=== PATIENT | female | born 2000 | race Caucasian/White ===

== ENCOUNTER 2018-03-22 16:49 | Emergency (ER) | payer OTHER ==
[~2018-03-22] VITALS: Ht 167.6 cm; Wt 70.3 kg
[2018-03-22 17:37] LABS: BILIRUBIN,URINE NEGATIVE (NEG); CLARITY,URINE CLOUDY; COLOR,URINE YELLOW; NITRITE,URINE NEGATIVE (NEG); PH,URINE 7.5; PROTEIN,URINE NEGATIVE (NEG-TRACE)
[2018-03-22 17:48] LABS: RBC,URINE 0 /HPF (0-2)
[2018-03-22 17:49] LABS: BACTERIA,URINE MANY /HPF (0-FEW); SQUAMOUS EPITHELIAL CELL,UR MANY /LPF; WBC,URINE 20-40 /HPF (0-4)
--- NOTE | 2018-03-22 17:55 | PHYS DOC ---
Adult General Chief Complaint Chief Complaint: [facility]BD[facility]AL [facility] HPI Patient is a 17 year old female with no significant medical history no 1 para 0 presenting today with complains of abdominal pain in . She states she did 2 test today which were positive, she states abdominal pain began this afternoon, patient states the pain is very minimal. She states her last menstrual cycle was March 06, 2018. Patient denies any vaginal bleeding. Denies any nausea vomiting. Review of Systems Review of Systems Constitutional: Denies fever or chills [] Eyes: Denies change in visual acuity, redness, or eye pain [] HENT: Denies nasal congestion or sore throat [] Respiratory: Denies cough or shortness of breath [] Cardiovascular: No additional information not addressed in HPI [] GI: Reports abdominal pain in , denies, nausea, vomiting, bloody stools or diarrhea [] : Denies dysuria or hematuria [] Musculoskeletal: Denies back pain or joint pain [] Integument: Denies rash or skin lesions [] Neurologic: Denies headache, focal weakness or sensory changes [] All other systems were reviewed and found to be within normal limits, except as documented in this note. Allergies Allergies Allergies Coded Allergies Type Severity Reaction Last Updated Verified No Known Drug Allergies 03/22/18 No Physical Exam Physical Exam Constitutional: Well developed, well nourished, no acute distress, non-toxic appearance. [] HENT: Normocephalic, atraumatic, bilateral external ears normal, oropharynx moist, no oral exudates, nose normal. [] Eyes: PERRLA, EOMI, conjunctiva normal, no discharge. [] Neck: Normal range of motion, no tenderness, supple, no stridor. [] Cardiovascular:Heart rate regular rhythm, no murmur [] Lungs & Thorax: Bilateral breath sounds clear to auscultation [] Abdomen: Bowel sounds normal, soft, no tenderness, no masses, no pulsatile masses. [] Pelvic exam External pelvic appears normal, cervix is closed, no CMT, no adnexal tenderness , no bleeding. Skin: Warm, dry, no erythema, no rash. [] Back: No tenderness, no CVA tenderness. [] Extremities: No tenderness, no cyanosis, no clubbing, ROM intact, no edema. [] Neurologic: Alert and oriented X 3, normal motor function, normal sensory function, no focal deficits noted. [] Psychologic: Affect normal, judgement normal, mood normal. [] Current Patient Data Vital Signs Vital Signs Date Time Temp Pulse Resp B/P (MAP) Pulse Ox O2 Delivery O2 Flow Rate FiO2 03/22/18 17:55 98.8 100 18 133/59 (83) 99 Room Air 98.8 Lab Values Laboratory Tests Test 03/22/18 17:29 03/22/18 17:33 03/22/18 18:25 Urine Collection Type Unknown Urine Color Yellow Urine Clarity Cloudy Urine pH 7.5 Urine Specific [place] 1.020 Urine Protein Negative mg/dL (NEG-TRACE) Urine Glucose (UA) Negative mg/dL (NEG) Urine Ketones (Stick) Negative mg/dL (NEG) Urine Blood Negative (NEG) Urine Nitrite Negative (NEG) Urine Bilirubin Negative (NEG) Urine Urobilinogen Dipstick 1.0 mg/dL (0.2 mg/dL) Urine Leukocyte Esterase Large (NEG) Urine RBC 0 /HPF (0-2) Urine WBC 20-40 /HPF (0-4) Urine Squamous Epithelial Cells Many /LPF Urine Bacteria Many /HPF (0-FEW) POC Urine HCG, Qualitative Hcg positive (Negative) White Blood Count 9.1 x10^3/uL (4.0-11.0) Red Blood Count 4.11 x10^6/uL (3.50-5.40) Hemoglobin 12.1 g/dL (12.0-15.5) Hematocrit 35.4 % (36.0-47.0) L Mean Corpuscular Volume 86 fL (79-100) Mean Corpuscular Hemoglobin 30 pg (25-35) Mean Corpuscular Hemoglobin Concent 34 g/dL (31-37) Red Cell Distribution Width 14.0 % (11.5-14.5) Platelet Count 270 x10^3/uL (140-400) Neutrophils (%) (Auto) 63 % (31-73) Lymphocytes (%) (Auto) 25 % (24-48) Monocytes (%) (Auto) 10 % (0-9) H Eosinophils (%) (Auto) 1 % (0-3) Basophils (%) (Auto) 1 % (0-3) Neutrophils # (Auto) 5.8 x10^3uL (1.8-7.7) Lymphocytes # (Auto) 2.3 x10^3/uL (1.0-4.8) Monocytes # (Auto) 0.9 x10^3/uL (0.0-1.1) Eosinophils # (Auto) 0.1 x10^3/uL (0.0-0.7) Basophils # (Auto) 0.1 x10^3/uL (0.0-0.2) Maternal Serum HCG Beta Subunit 981 mIU/mL (0-5) H Sodium Level 136 mmol/L (136-145) Potassium Level 4.3 mmol/L (3.5-5.1) Chloride Level 102 mmol/L (98-107) Carbon Dioxide Level 25 mmol/L (21-32) Anion Gap 9 (6-14) Blood Urea Nitrogen 15 mg/dL (7-20) Creatinine 0.6 mg/dL (0.6-1.0) Estimated GFR (Cockcroft-Gault) 128.8 BUN/Creatinine Ratio 25 (6-20) H Glucose Level 97 mg/dL (70-99) Calcium Level 9.4 mg/dL (8.5-10.1) Total Bilirubin 0.2 mg/dL (0.2-1.0) Aspartate Amino Transferase (AST) 24 U/L (15-37) Alanine Aminotransferase (ALT) 45 U/L (14-59) Alkaline Phosphatase 55 U/L (46-116) Total Protein 7.6 g/dL (6.4-8.2) Albumin 3.7 g/dL (3.4-5.0) Albumin/Globulin Ratio 0.9 (1.0-1.7) L Laboratory Tests 03/22/18 18:25 Laboratory Tests 03/22/18 18:25 Microbiology 03/22/18 Wet Prep - Final, Complete EKG EKG [] Radiology/Procedures Radiology/Procedures [] Course & Med Decision Making Course & Med Decision Making Pertinent Labs and Imaging studies reviewed. (See chart for details) This is a 17-year-old female patient presenting to the ED with complaints of abdominal pain in . Patient just found out today she is . She is a 1 para 0, last menstrual cycle was March 06, 2018. Positive urine hcg. 1750 Care transferred to Marcial Mckay NP. The patient is found to be positive with a urinary tract infection as well as bacterial vaginosis. She is being discharged home with prescriptions to treat his infections. She has been given a referral to an cinder pit worker. She is in agreement with this plan. Vinny Disclaimer Vinny Disclaimer This electronic medical record was generated, in whole or in part, using a voice recognition dictation system. Departure Departure Impression: Primary Impression: Abdominal pain in Additional Impressions: Urinary tract infection affecting Bacterial vaginosis Disposition: HOME, SELF-CARE Condition: STABLE Referrals: FOREST ALTAMIRANO MD follow up in the next 1-2 weeks Patient Instructions: Bacterial Vaginosis, - Urinary Tract Infection Additional Instructions: Take the medication as prescribed. Follow-up with your primary care provider in one week for urine recheck. If worsening follow-up with OB sooner or return to the emergency department. Scripts Nitrofurantoin Monohyd/M-Cryst (MACROBID 100 MG CAPSULE) 100 Mg Capsule 1 CAP PO BID for UTI, #14 CAP Prov: MARCIAL MCKAY APRN 03/22/18 Metronidazole (FLAGYL) 500 Mg Tablet 1 TAB PO BID for BV, #14 TAB Prov: MARCIAL MCKAY APRN 03/22/18 Problem Qualifiers Primary Impression: Abdominal pain in Trimester: first trimester Qualified Codes: O26.891 - Other specified related conditions, first trimester; R10.9 - Unspecified abdominal pain CONY CAMPOS APRN Mar 22, 2018 17:55 MARCIAL MCKAY APRN Mar 22, 2018 20:02
[2018-03-22 18:35] LABS: BASO # 0.1 x10^3/uL (0.0-0.2); BASO % 1 % (0-3); EOS # 0.1 x10^3/uL (0.0-0.7); EOS % 1 % (0-3); HEMATOCRIT 35.4 % (36.0-47.0); HEMOGLOBIN 12.1 g/dL (12.0-15.5); LYMPH # 2.3 x10^3/uL (1.0-4.8); LYMPH % 25 % (24-48); MEAN CORPUSCULAR HEMOGLOBIN 30 pg (25-35); MEAN CORPUSCULAR HGB CONC 34 g/dL (31-37); MEAN CORPUSCULAR VOLUME 86 fL (79-100); MONO # 0.9 x10^3/uL (0.0-1.1); MONO % 10 % (0-9); NEUT # 5.8 x10^3uL (1.8-7.7); NEUT % 63 % (31-73); PLATELET COUNT 270 x10^3/uL (140-400); RED BLOOD COUNT 4.11 x10^6/uL (3.50-5.40); WHITE BLOOD COUNT 9.1 x10^3/uL (4.0-11.0)
[2018-03-22 18:44] LABS: CALCIUM 9.4 mg/dL (8.5-10.1); CREATININE 0.6 mg/dL (0.6-1.0); GFR 128.8; POTASSIUM 4.3 mmol/L (3.5-5.1)
[2018-03-22 18:50] LABS: ALBUMIN 3.7 g/dL (3.4-5.0); ALBUMIN/GLOBULIN RATIO 0.9 (1.0-1.7); TOTAL BILIRUBIN 0.2 mg/dL (0.2-1.0); TOTAL PROTEIN 7.6 g/dL (6.4-8.2)
[2018-03-22 19:51] VITALS: BP 108/66
[2018-03-22] MEDS ORDERED: METR500T PO (20:01)
[2018-03-22] MEDS ORDERED: NITR100C62 PO (20:01)
[2018-03-25 14:23] LABS: GC PROBE Negative (Negative)
== END 2018-03-22 19:57 | disposition home or self-care (01) ==
LOC: ER 16:49
DX: O23.41 Unspecified infection of urinary tract in pregnancy, first trimester (principal); O23.591 Infection of other part of genital tract in pregnancy, first trimester; R10.9 Unspecified abdominal pain; B96.89 Other specified bacterial agents as the cause of diseases classified elsewhere; Z3A.01 Less than 8 weeks gestation of pregnancy
CPT/HCPCS: 80053; 81001; 81025; 84702; 85025; 99283; Q0111; 36415; 87086; 87491; 87591

== ENCOUNTER → 2018-11-28 | Outpatient (CLI) | payer MEDICAID ==
[2018-04-11 19:00] VITALS: BP 121/80
[~2018-11-28] MED LIST: CEPH500C PO; METR500T PO; NITR100C62 PO; ONDA4TAB7 PO
--- NOTE | 2018-11-29 12:14 | KCIC ---
OB ultrasound greater than 14 weeks 11/28/2018 Clinical History: survey. Technique: A real-time ultrasound examination of the gravid uterus was performed. Multiple images were obtained. Findings: There is a single living IUP. The fetus is in a cephalic position. cardiac and somatic activity is seen. The heart rate is 150 beats per minutes. The maternal cervix is closed. It measures 4.28 cm in length. The placenta is anterior. No abnormality is seen. The amniotic fluid volume is within normal limits. The CON measures 12.9 cm. Neither maternal ovary is visualized. The following measurements were obtained: BPD 4.92cm 20 weeks 6 days HC 18.48 cm 20weeks 6 days AC 14.73 cm 20weeks 0 days FL 3.20 cm 20 weeks 0 days The estimated gestational age by ultrasound is 20 weeks 3 days plus or minus a standard deviation of 10 days. The estimated date of delivery by ultrasound is 04/14/2019. No abnormality is seen. Specifically the stomach, bladder, kidneys, 3 vessel cord and cord insertion, four-chamber heart, cisterna magna, cerebellum, nose/mouth, spine and extremities are well-visualized and within normal limits. Impression: Single living IUP with an estimated gestational age by ultrasound of 20 weeks 3 days +/- a standard deviation of 10 days. The estimated date of delivery by ultrasound is 04/14/2019. Electronically signed by: Donell Hutchinson MD (11/29/2018 12:10 PM) [facility]
== END | disposition home or self-care (01) ==
LOC: KCIC US 08:41
PROVIDERS: ATTEND Obstetrics & Gynecology
DX: O26.842 Uterine size-date discrepancy, second trimester (principal); Z3A.20 20 weeks gestation of pregnancy
CPT/HCPCS: 76805

== ENCOUNTER 2019-01-04 12:43 | Emergency (ER) | payer MEDICAID ==
[~2019-01-04] VITALS: Ht 170.2 cm; Wt 70.3 kg
[2019-01-04 13:00] VITALS: BP 143/80
--- NOTE | 2019-01-04 13:08 | PHYS DOC ---
Past Medical History Past Medical History: No Pertinent History (TESS HERNANDEZ APRN) Past Surgical History: No Surgical History (TESS HERNANDEZ APRN) Alcohol Use: None Drug Use: None (TESS HERNANDEZ APRN) Adult General Chief Complaint Chief Complaint: WRIST PAIN HPI HPI Patient is a 18 year old female who presents with Left lateral wrist pain that started last night. No bruising, swelling, redness, abrasion. Denies injury. Rates pain a 7/10. When patient is asked to explain the quality of pain she is unable too and states she doesn't know. (TESS HERNANDEZ APRN) Review of Systems Review of Systems Musculoskeletal: Denies back pain. Left lateral wrist pain joint pain [] All other systems were reviewed and found to be within normal limits, except as documented in this note. (TESS HERNANDEZ APRN) Allergies Allergies Allergies Coded Allergies Type Severity Reaction Last Updated Verified No Known Drug Allergies 03/22/18 No (MATTHIAS HERRERA MD) Physical Exam Physical Exam Constitutional: Well developed, well nourished, no acute distress, non-toxic appearance. [] HENT: Normocephalic, atraumatic, bilateral external ears normal, oropharynx moist, no oral exudates, nose normal. [] Skin: Warm, dry, no erythema, no rash. [] Back: No tenderness, no CVA tenderness. [] Extremities: No tenderness, no cyanosis, no clubbing, ROM intact, no edema. [] Neurologic: Alert and oriented X 3, normal motor function, normal sensory function, no focal deficits noted. [] Psychologic: Affect normal, judgement normal, mood normal. [] (TESS HERNANDEZ APRN) Current Patient Data Vital Signs Vital Signs Date Time Temp Pulse Resp B/P (MAP) Pulse Ox O2 Delivery O2 Flow Rate FiO2 01/04/19 13:00 97.4 102 16 143/80 (101) 95 Room Air 97.4 (MATTHIAS HERRERA MD) EKG EKG [] (TESS HERNANDEZ APRN) Radiology/Procedures Radiology/Procedures [] (TESS HERNANDEZ APRN) Course & Med Decision Making Course & Med Decision Making No tenderness to the left lateral wrist or forearm. Full range of motion to the Left wrist and elbow. Can wiggles all fingers. No swelling. Radial pulse strong and present. Cap refill < 3 seconds. Alert and oriented. Speak in full clear sentences. I offered a xray although I states to the patient and family that there is likely no broken bones. Family states no she doesn't need one and would like a wendy bandage. I also offered Ibuprofen and the family states that they will stop and get Ibuprofen for the patient. [] (TESS HERNANDEZ APRN) Dragon Disclaimer Dragon Disclaimer This electronic medical record was generated, in whole or in part, using a voice recognition dictation system. (TESS HERNANDEZ APRN) Departure Departure Impression: Primary Impression: Encounter for medical screening examination Disposition: 01 HOME, SELF-CARE Condition: STABLE Referrals: RJ BAEZA MD (PCP) Patient Instructions: Medical Screening Exam Additional Instructions: Follow up with primary care provider. Attending Signature I have participated in the care of this patient and I have reviewed and agree with all pertinent clinical information above including history, exam, and recommendations. (MATTHIAS HERRERA MD) TESS HERNANDEZ APRN Jan 04, 2019 13:08 MATTHIAS HERRERA MD Jan 09, 2019 18:13
== END 2019-01-04 13:26 | disposition home or self-care (01) ==
LOC: ER 12:43
DX: M25.532 Pain in left wrist (principal)
CPT/HCPCS: 99282

== ENCOUNTER → 2019-01-20 | Outpatient (CLI) | payer MEDICAID ==
[2019-01-04 13:00] VITALS: BP 143/80
== END | disposition home or self-care (01) ==
LOC: LAB 08:59
PROVIDERS: ATTEND Obstetrics & Gynecology
DX: O09.90 Supervision of high risk pregnancy, unspecified, unspecified trimester (principal)
CPT/HCPCS: 36415; 82947; 82950

== ENCOUNTER 2019-02-08 14:09 | Emergency (ER) | payer MEDICAID ==
[~2019-02-08] VITALS: Ht 170.2 cm; Wt 91.6 kg
[2019-02-08 14:18] VITALS: BP 136/80
[2019-02-08] MEDS ORDERED: IPRATRPIUM/ALBUTEROL 0.5/2.5MG 3 ML NEBU. NEB ONE (14:30)
--- NOTE | 2019-02-08 14:36 | PHYS DOC ---
Past Medical History Past Medical History: No Pertinent History Past Surgical History: No Surgical History Alcohol Use: None Drug Use: None Adult General Chief Complaint Chief Complaint: SHORTNESS OF BREATH HPI HPI Patient is a 18 year old estimated 30 week gestation female who presents with shortness of breath episode starting 1 hour prior to ED arrival. Symptoms lasted 40 minutes then resolved. Patient recently diagnosed and treated for bronchitis at local clinic. She is taking Zithromax. Reports continued nonproductive cough. No history of asthma. Denies chest pain palpitations, fever chills or sweats. Denies increased leg pain or swelling. Denies abdominal pain. Reports quickening. No other acute symptoms or complaints. [] Review of Systems Review of Systems ROS as per HPI. All other systems were reviewed and found to be within normal limits, except as documented in this note. Current Medications Current Medications Current Medications Medications (Trade) Dose Ordered Sig/Bo Start Time Stop Time Status Last Admin Dose Admin Albuterol/ Ipratropium (Duoneb) 3 ml 1X ONCE 02/08/19 14:30 02/08/19 14:38 DC 02/08/19 14:46 3 ML Allergies Allergies Allergies Coded Allergies Type Severity Reaction Last Updated Verified No Known Drug Allergies 03/22/18 No Physical Exam Physical Exam Constitutional: Well developed, well nourished, no acute distress, non-toxic appearance. [] HENT: Normocephalic, atraumatic, bilateral external ears normal, oropharynx moist, no oral exudates, nose normal. [] Eyes: PERRLA, EOMI, conjunctiva normal, no discharge. [] Neck: Normal range of motion, no tenderness, supple, no stridor. [] Cardiovascular:Heart rate regular rhythm, no murmur. [] Lungs & Thorax: Bilateral breath sounds clear to auscultation, [] Abdomen: Bowel sounds normal, soft, no tenderness. Abdomen abdomen above the umbilicus, [] Skin: Warm, dry, no erythema, no rash. [] Back: No tenderness. [] Extremities: No tenderness, no cyanosis, no edema. [] Neurologic: Alert and oriented X 3, normal motor function, normal sensory funct ion, no focal deficits noted. [] Psychologic: Affect normal, judgement normal, mood normal. [] Current Patient Data Vital Signs Vital Signs Date Time Temp Pulse Resp B/P (MAP) Pulse Ox O2 Delivery O2 Flow Rate FiO2 02/08/19 16:00 92 25 95 Room Air 02/08/19 14:18 97.4 136/80 (98) 97.4 EKG EKG [] Radiology/Procedures Radiology/Procedures [] Course & Med Decision Making Course & Med Decision Making Pertinent Labs and Imaging studies reviewed. (See chart for details) [Bronchitis with bronchospasm. Breathing treatment given with good air movement and no wheezing. Symptoms much improved. Outpatient treatment with your [employer] follow-up. Return precautions reviewed. Patient verbalizes understanding and agreement with discharge instructions prior to departure. Dragon Disclaimer Dragon Disclaimer This electronic medical record was generated, in whole or in part, using a voice recognition dictation system. Departure Departure Impression: Primary Impression: Acute bronchiolitis with bronchospasm Additional Impression: Third trimester Disposition: 01 HOME, SELF-CARE Condition: IMPROVED Referrals: RJ BAEZA MD (PCP) Scripts Albuterol Sulfate (VENTOLIN HFA INHALER) 18 Gm Hfa.aer.ad 2 PUFF INH QID for shortness of breath, #1 INHALER 0 Refills Prov: JOANIE DAVENPORT DO 02/08/19 Prednisone (PREDNISONE) 50 Mg Tablet 1 TAB PO DAILY, #5 TAB Prov: JOANIE DAVENPORT DO 02/08/19 Problem Qualifiers JOANIE DAVENPORT DO Feb 08, 2019 14:36
[2019-02-08] MEDS ORDERED: VENTOLIN HFA18 GM INH (16:05)
[2019-02-08] MEDS ORDERED: PRED50TA PO (16:05)
== END 2019-02-08 16:30 | disposition home or self-care (01) ==
LOC: ER 14:09
DX: O99.513 Diseases of the respiratory system complicating pregnancy, third trimester (principal); J21.9 Acute bronchiolitis, unspecified; Z3A.30 30 weeks gestation of pregnancy
CPT/HCPCS: 94640; 99284; J7620; 99283

== ENCOUNTER 2019-04-14 18:11 | Inpatient (IN) | payer SELFPAY ==
[~2019-04-14] VITALS: Ht 170.2 cm; Wt 96.2 kg
[~2019-04-14 18:11] MED LIST changes: +PRED50TA PO; +VENTOLIN HFA18 GM INH
[2019-04-14] MEDS ORDERED: MAG HYDROX/ALUMINUM HYD/SIMETH 30 ML ORAL.SUSP PO PRN (18:30)
[2019-04-14] MEDS ORDERED: 0.9 % SODIUM CHLORIDE 10 ML DISP.SYRIN. IV PRN (18:30)
[2019-04-14] MEDS ORDERED: ACETAMINOPHEN 325 MG TABLET. PO PRN (18:30)
[2019-04-14] MEDS ORDERED: ONDANSETRON PF 4 MG/2 ML VIAL. IV PRN (18:30)
[2019-04-14] MEDS ORDERED: DOCUSATE SODIUM 283 MG/5 ML ENEMA. PR PRN (18:30)
[2019-04-14] MEDS ORDERED: TERBUTALINE 1 MG/ML VIAL. SQ PRN (18:30)
[2019-04-14] MEDS ORDERED: DINOPROSTONE 10 MG SUPP.VAG VG ONE (18:30)
[2019-04-14] MEDS ORDERED: LIDOCAINE 1% PF 30 ML VIAL. INJ PRN (18:30)
[2019-04-14] MEDS ORDERED: OXYTOCIN 30 UNIT/500 ML PREMIX 500 ML IV PRN (18:30)
[2019-04-14] MEDS ORDERED: IBUPROFEN 400 MG TABLET. PO PRN (18:30)
[2019-04-14] MEDS ORDERED: CITRIC ACID/SODIUM CITRATE 30 ML SOLUTION. PO PRN (18:30)
[2019-04-14] MEDS ORDERED: ZOLPIDEM 5 MG TABLET. PO PRN (18:30)
[2019-04-14] MEDS ORDERED: fentaNYL PF VIAL 100 MCG/2 ML VIAL IV PRN ×2 (18:30)
[2019-04-14] MEDS: IV RINGERS,LACTATED 1000ML 1,000 ML IV SCH (19:26)
[2019-04-14 19:29] VITALS: BP 127/82
[2019-04-14 19:38] LABS: BASO % 0 % (0-3); EOS # 0.1 x10^3/uL (0.0-0.7); EOS % 1 % (0-3); HEMOGLOBIN 11.8 g/dL (12.0-15.5); LYMPH # 1.6 x10^3/uL (1.0-4.8); LYMPH % 17 % (24-48); MEAN CORPUSCULAR HEMOGLOBIN 29 pg (25-35); MEAN CORPUSCULAR HGB CONC 34 g/dL (31-37); MEAN CORPUSCULAR VOLUME 86 fL (79-100); MONO % 10 % (0-9); NEUT # 6.6 x10^3/uL (1.8-7.7); NEUT % 72 % (31-73); PLATELET COUNT 221 x10^3/uL (140-400); RED BLOOD COUNT 4.07 x10^6/uL (3.50-5.40); RED CELL DISTRIBUTION WIDTH 16.4 % (11.5-14.5); WHITE BLOOD COUNT 9.2 x10^3/uL (4.0-11.0)
[2019-04-14 20:22] LABS: BILIRUBIN,URINE NEGATIVE (NEG); CLARITY,URINE CLEAR; COLOR,URINE YELLOW; NITRITE,URINE NEGATIVE (NEG); PH,URINE 6.5; PROTEIN,URINE NEGATIVE (NEG-TRACE)
[2019-04-14 20:26] LABS: SQUAMOUS EPITHELIAL CELL,UR MOD /LPF
[2019-04-14 20:27] LABS: BACTERIA,URINE MODERATE /HPF (0-FEW); RBC,URINE RARE /HPF (0-2)
[2019-04-15] MEDS: OXYTOCIN 30 UNIT/500 ML PREMIX 500 ML IV PRN (06:08)
[2019-04-15] MEDS: IV RINGERS,LACTATED 1000ML 1,000 ML IV SCH (08:21)
--- NOTE | 2019-04-15 08:31 | PDOC1 ---
OB - History Hx of Present Care: Good Care Ultrasounds: Normal mid trimester US Obstetrical Complications: None Medical Complications: None Past Family/Social History * Past Medical, Surgical, Family and Obstetric Histories reviewed from chart. Rubella: Immune RPR/VDRL: Negative GBS Status: Negative HBsAG: Negative OB - Chief Complaint & HPI Date of Admission: Date of Admission: Apr 14, 2019 at 18:11 Chief Complaint/History : 2 Para: 0 EGA: 40 Reason for admission: induction of labor Indication for induction: post dates, maternal discomfort Admission Nurse Assessment Rev: Yes OB - Admission Exam Physical Exam Vitals: VS - Last 72 Hours, by Label Date Time Temp Pulse Resp B/P (MAP) Pulse Ox O2 Delivery O2 Flow Rate FiO2 04/14/19 19:29 98.2 99 18 127/82 (97) 99 Room Air 98.2 HEENT: Normal Heart: Regular Rate Lungs: Clear Abdomen: Gravid, Non tender, Soft Extremities: Edema Reflexes: Normal Cervical Dilatation: None Effacement: 25% Station: -3 Membranes: Intact Heart Rate: Normal Accelerations: Accelerations Present Decelerations: No decelerations Contractions on Admission: None Text A: 40 wks IUP IOL secondary post term P: Admit labor induction cervidil, then pitocin. BRANDON HOFFMAN Jr, MD Apr 15, 2019 08:31
[2019-04-15] MEDS ORDERED: DINOPROSTONE 10 MG SUPP.VAG VG ONE (18:00)
[2019-04-15] MEDS ORDERED: diphenhydrAMINE HCL 25 MG CAPSULE PO PRN (21:15)
[2019-04-16] MEDS: IV RINGERS,LACTATED 1000ML 1,000 ML IV SCH ×5 (02:17→19:56)
[2019-04-16] MEDS: OXYTOCIN 30 UNIT/500 ML PREMIX 500 ML IV PRN (08:38)
--- NOTE | 2019-04-16 09:14 | PDOC ---
OB Progress Note Date of Service 04/16/19 Time of Evaluation 0912 Notes Pt. feeling well. She received cervidil overnight and now on pitocin augmentation. No cervical change. Lab Laboratory Tests Test 04/14/19 19:15 White Blood Count 9.2 x10^3/uL (4.0-11.0) Red Blood Count 4.07 x10^6/uL (3.50-5.40) Hemoglobin 11.8 g/dL (12.0-15.5) Hematocrit 35.0 % (36.0-47.0) Mean Corpuscular Volume 86 fL (79-100) Mean Corpuscular Hemoglobin 29 pg (25-35) Mean Corpuscular Hemoglobin Concent 34 g/dL (31-37) Red Cell Distribution Width 16.4 % (11.5-14.5) Platelet Count 221 x10^3/uL (140-400) Neutrophils (%) (Auto) 72 % (31-73) Lymphocytes (%) (Auto) 17 % (24-48) Monocytes (%) (Auto) 10 % (0-9) Eosinophils (%) (Auto) 1 % (0-3) Basophils (%) (Auto) 0 % (0-3) Neutrophils # (Auto) 6.6 x10^3/uL (1.8-7.7) Lymphocytes # (Auto) 1.6 x10^3/uL (1.0-4.8) Monocytes # (Auto) 1.0 x10^3/uL (0.0-1.1) Eosinophils # (Auto) 0.1 x10^3/uL (0.0-0.7) Basophils # (Auto) 0.0 x10^3/uL (0.0-0.2) Urine Collection Type Unknown Urine Color Yellow Urine Clarity Clear Urine pH 6.5 Urine Specific [place] 1.020 Urine Protein Negative mg/dL (NEG-TRACE) Urine Glucose (UA) Negative mg/dL (NEG) Urine Ketones (Stick) Negative mg/dL (NEG) Urine Blood Negative (NEG) Urine Nitrite Negative (NEG) Urine Bilirubin Negative (NEG) Urine Urobilinogen Dipstick 1.0 mg/dL (0.2 mg/dL) Urine Leukocyte Esterase Moderate (NEG) Urine RBC Rare /HPF (0-2) Urine WBC 11-20 /HPF (0-4) Urine Squamous Epithelial Cells Mod /LPF Urine Bacteria Moderate /HPF (0-FEW) Urine Mucus Mod /LPF Treponema pallidum Antibody Nonreactive (Nonreactive) Medications Current Medications Sodium Chloride (Normal Saline Flush) 3 ml QSHIFT PRN IV AFTER MEDS AND BLOOD DRAWS; Start 04/14/19 at 18:30 Ringer's Solution 1,000 ml @ 125 mls/hr Q8H IV Last administered on 04/16/19at 08:40; Start 04/14/19 at 18:17 Fentanyl Citrate (Fentanyl 2ml Vial) 50 mcg PRN Q30MIN PRN IV Mild to moderate pain; Start 04/14/19 at 18:30 Fentanyl Citrate (Fentanyl 2ml Vial) 100 mcg PRN Q30MIN PRN IV Severe pain; Start 04/14/19 at 18:30 Acetaminophen (Tylenol) 650 mg PRN Q6HRS PRN PO MILD PAIN / TEMP; Start 04/14/19 at 18:30 Ondansetron HCl (Zofran) 4 mg PRN Q4HRS PRN IV NAUSEA/VOMITING; Start 04/14/19 at 18:30 Al Hydroxide/Mg Hydroxide (Mylanta Plus Xs) 30 ml PRN Q4HRS PRN PO HEARTBURN / GAS; Start 04/14/19 at 18:30 Citric Acid/ Sodium Citrate (Bicitra) 30 ml 1X PRN PRN PO DYSPEPSIA; Start 04/14/19 at 18:30; Stop 04/15/19 at 18:29; Status DC Zolpidem Tartrate (Ambien) 5 mg PRN QHS PRN PO INSOMNIA Last administered on 04/15/19at 00:13; Start 04/14/19 at 18:30; Stop 04/15/19 at 13:14; Status DC Terbutaline Sulfate (Brethine) 0.25 mg 1X PRN PRN SQ SEE COMMENTS; Start at 18:30; Stop 04/15/19 at 18:29; Status DC Lidocaine HCl (Xylocaine 1% Pf 30ml Vial) 30 ml 1X PRN PRN INJ SEE COMMENTS; Start 04/14/19 at 18:30; Stop 04/16/19 at 18:29 Oxytocin/Sodium Chloride 500 ml @ 0 mls/hr CONT PRN IV SEE I/O RECORD Last administered on 04/16/19at 08:38; Start 04/14/19 at 18:30 Oxytocin/Sodium Chloride 500 ml @ 0 mls/hr CONT PRN PRN IV Post delivery bleeding; Start 04/14/19 at 18:30 Ibuprofen (Motrin) 800 mg PRN Q6HRS PRN PO INFLAMMATION; Start 04/14/19 at 18:30 Docusate Sodium (Enemeez) 283 mg PRN DAILY PRN ID CONSTIPATION; Start 04/14/19 at 18:30 Dinoprostone (Cervidil) 10 mg 1X ONCE VG Last administered on 04/14/19at 19:26; Start 04/14/19 at 18:30; Stop 04/14/19 at 18:31; Status DC Dinoprostone (Cervidil) 10 mg 1X ONCE VG Last administered on 04/15/19at 17:46; Start 04/15/19 at 18:00; Stop 04/15/19 at 18:01; Status DC Diphenhydramine HCl (Benadryl) 25 mg PRN QHS PRN PO INSOMNIA Last administered on 04/15/19at 21:14; Start 04/15/19 at 21:15 Active Scripts Active Ventolin Hfa Inhaler (Albuterol Sulfate) 18 Gm Hfa.aer.ad 2 Puff INH QID Prednisone 50 Mg Tablet 1 Tab PO DAILY Cephalexin 500 Mg Capsule 1 Cap PO BID Zofran (Ondansetron Hcl) 4 Mg Tablet 1 Tab PO Q6HRS Macrobid 100 Mg Capsule (Nitrofurantoin Monohyd/M-Cryst) 100 Mg Capsule 1 Cap PO BID Flagyl (Metronidazole) 500 Mg Tablet 1 Tab PO BID Exam Abd: soft, non tender Pelvic: cervix closed Assessment 40 wks IUP FTD Plan of Care: See new orders (Plan for c/s since no cervical change.) BRANDON HOFFMAN Jr, MD Apr 16, 2019 09:14
[2019-04-16] MEDS ORDERED: FAMOTIDINE 20 MG/2 ML VIAL ONE (10:52)
[2019-04-16] MEDS ORDERED: OXYTOCIN 10 UNIT/ML VIAL. ONE ×3 (10:52→14:25)
[2019-04-16] MEDS ORDERED: ONDANSETRON PF 4 MG/2 ML VIAL. ONE (10:52)
[2019-04-16] MEDS ORDERED: fentaNYL PF VIAL 100 MCG/2 ML VIAL ONE (10:53)
[2019-04-16] MEDS ORDERED: MORPHINE PF 10 MG/10 ML AMPUL. ONE (10:53)
[2019-04-16] MEDS ORDERED: CITRIC ACID/SODIUM CITRATE 30 ML SOLUTION. PO ONE (13:15)
[2019-04-16] MEDS ORDERED: ceFAZolin SODIUM IV Push 1 GM VIAL. IVP ONE (13:43)
--- NOTE | 2019-04-16 14:34 | PDOC4 ---
OB Operative Note Date: Apr 16, 2019 PRE OP DIAGNOSIS: Other (FTD) POST OP DIAGNOSIS: Other (Same) OPERATION PERFORMED: L [facility] Surgeon Dr. Cali Anesthesia: Regional (Spinal) Blood Loss 1, 000 ml Specimen placenta and OB Findings: Position (Vertex), Sex (Female), (8/9), Weight (7 Lb 11 oz), Nuchal Cord (x 2) Complications none Additional Remarks pt. BRANDON Virk Jr, MD Apr 16, 2019 14:34
[2019-04-16] MEDS ORDERED: MAG HYDROX/ALUMINUM HYD/SIMETH 30 ML ORAL.SUSP PO PRN (14:45)
[2019-04-16] MEDS ORDERED: ONDANSETRON PF 4 MG/2 ML VIAL. IV PRN (14:45)
[2019-04-16] MEDS ORDERED: OXYTOCIN 30 UNIT/500 ML PREMIX 500 ML IV PRN (14:45)
[2019-04-16] MEDS ORDERED: ZOLPIDEM 5 MG TABLET. PO PRN (14:45)
[2019-04-16] MEDS ORDERED: diphenhydrAMINE ORAL ELIXIR 12.5 MG/5 ML ML PO PRN (14:45)
[2019-04-16] MEDS ORDERED: 0.9 % SODIUM CHLORIDE 10 ML DISP.SYRIN. IV PRN (14:45)
[2019-04-16] MEDS ORDERED: SIMETHICONE 80 MG TAB.CHEW PO PRN (14:45)
[2019-04-16] MEDS ORDERED: KETOROLAC 30 MG/ML VIAL. IV PRN (14:45)
[2019-04-16 18:00] VITALS: BP 105/65
--- NOTE | 2019-04-16 18:52 | OP ---
DATE OF SURGERY: PREOPERATIVE DIAGNOSES: 1. A 40 weeks' intrauterine . 2. Failure to dilate. POSTOPERATIVE DIAGNOSES: 1. A 40 weeks' intrauterine . 2. Failure to dilate. PROCEDURE: Primary low transverse section. SURGEON: Brandon Cali MD ANESTHESIA: Spinal. ESTIMATED BLOOD LOSS: 1000 mL. COMPLICATIONS: None. FINDINGS: Viable female , Apgars 8 and 9, weight 7 pounds 11 ounces, nuchal cord x 2, 3-vessel cord, placenta delivered manually. SUMMARY: A 18-year-old 1 at 40 weeks' gestation who presented for induction of labor. The patient failed to dilate, therefore, required section. She was counseled on risks, benefits, and expectations and voiced of clear understanding to proceed. DESCRIPTION OF PROCEDURE: The patient was taken to surgery suite and placed in dorsal supine position. She was prepped with ChloraPrep and draped in sterile fashion. After adequate anesthesia, Pfannenstiel skin incision was made with scalpel down to and through the fascia. Fascia was extended laterally using curved Trejo scissors. The superior edge of the fascia was grasped with two Savanna clamps and dissected free of the abdominal rectus muscles using blunt dissection along with Bovie cautery. The same process took place inferiorly. The abdominal rectus muscle dissected bluntly at the midline. Peritoneum was grasped with 2 hemostats, entered sharply with Metzenbaum scissors. This incision was extended superiorly as well as inferiorly. The William ring retractor was placed. A low transverse hysterotomy incision was made with scalpel down to the amniotic sac. Hysterotomy incision was extended laterally and superiorly digitally. Amniotomy was performed with Allis clamp which elicited moderate amount of clear fluid. With fundal pressure, the head was delivered in a smooth atraumatic manner. Nuchal cord x 2 was visualized and reduced. With additional fundal pressure, the anterior shoulder was delivered followed by posterior shoulder and rest of female was delivered. Infant suctioned with a bulb syringe orally and nasally, umbilical cord was clamped twice and cut and viable female infant was handed to waiting nursing staff. Umbilical cord blood was then obtained. Three-vessel cord placenta was delivered manually. The uterus was then exteriorized and cleared of clot and debris with moist lap. Hysterotomy incision was reapproximated using #1 Vicryl suture in running locked fashion. Imbricated layer of #1 Vicryl suture in a running fashion was utilized for better hemostasis. Three [id number] sutures were placed in the left apex of the hysterotomy incision for better hemostasis. Uterus palpated, firm. Fallopian tubes and ovaries appeared normal bilaterally. Posterior cul-de-sac was cleared of clot and debris with a moist lap. The uterus was then returned to the abdomen. Pericolic gutters were cleared of clot and debris with a moist lap. Hysterotomy incision was reviewed and was hemostatic. The William ring retractor was removed. Peritoneum was reapproximated using #1 Vicryl suture in running fashion. Abdominal rectus muscles were reapproximated using #1 Vicryl suture in running fashion. Fascia was reapproximated using Stratafix in a running fashion. Skin was reapproximated with 4-0 Vicryl suture in subcutaneous manner. The patient tolerated the procedure well, was taken to recovery room in stable condition. Sponge and needle count correct x 3. BRANDON CALI MD DR: JAMES/ramila JOB#: [id number] / [id number]
[2019-04-16 19:49] VITALS: BP 109/57
[2019-04-16] MEDS: FERROUS SULFATE 325 MG TABLET. PO SCH (19:57)
[2019-04-16] MEDS: KETOROLAC 30 MG/ML VIAL. IV PRN (23:20)
[2019-04-17 00:19] VITALS: BP 113/48
[2019-04-17] MEDS: IV RINGERS,LACTATED 1000ML 1,000 ML IV SCH (02:53)
[2019-04-17 06:02] VITALS: BP 124/85
[2019-04-17 06:03] LABS: BASO # 0.1 x10^3/uL (0.0-0.2); BASO % 1 % (0-3); EOS % 1 % (0-3); HEMATOCRIT 31.1 % (36.0-47.0); HEMOGLOBIN 10.4 g/dL (12.0-15.5); LYMPH # 1.6 x10^3/uL (1.0-4.8); LYMPH % 17 % (24-48); MEAN CORPUSCULAR HEMOGLOBIN 29 pg (25-35); MEAN CORPUSCULAR HGB CONC 33 g/dL (31-37); MEAN CORPUSCULAR VOLUME 88 fL (79-100); MONO # 0.7 x10^3/uL (0.0-1.1); MONO % 8 % (0-9); NEUT # 7.1 x10^3/uL (1.8-7.7); NEUT % 75 % (31-73); PLATELET COUNT 175 x10^3/uL (140-400); RED BLOOD COUNT 3.55 x10^6/uL (3.50-5.40); RED CELL DISTRIBUTION WIDTH 16.8 % (11.5-14.5); WHITE BLOOD COUNT 9.5 x10^3/uL (4.0-11.0)
[2019-04-17] MEDS: KETOROLAC 30 MG/ML VIAL. IV PRN (06:20)
[2019-04-17] MEDS: DOCUSATE SODIUM 100 MG CAPSULE. PO PRN (07:58)
[2019-04-17] MEDS: FERROUS SULFATE 325 MG TABLET. PO SCH ×2 (07:58→17:10)
[2019-04-17] MEDS: oxyCODONE/APAP 5/325 1 TAB TABLET PO PRN ×4 (07:59→23:11)
[2019-04-17 09:00] VITALS: BP 123/84
--- NOTE | 2019-04-17 11:15 | PDOC ---
OB Progress Note Date of Service 04/17/19 Time of Evaluation 1115 Notes Pt. feeling well. No complaints. Pain controlled. Lab Laboratory Tests Test 04/17/19 05:30 White Blood Count 9.5 x10^3/uL (4.0-11.0) Red Blood Count 3.55 x10^6/uL (3.50-5.40) Hemoglobin 10.4 g/dL (12.0-15.5) Hematocrit 31.1 % (36.0-47.0) Mean Corpuscular Volume 88 fL (79-100) Mean Corpuscular Hemoglobin 29 pg (25-35) Mean Corpuscular Hemoglobin Concent 33 g/dL (31-37) Red Cell Distribution Width 16.8 % (11.5-14.5) Platelet Count 175 x10^3/uL (140-400) Neutrophils (%) (Auto) 75 % (31-73) Lymphocytes (%) (Auto) 17 % (24-48) Monocytes (%) (Auto) 8 % (0-9) Eosinophils (%) (Auto) 1 % (0-3) Basophils (%) (Auto) 1 % (0-3) Neutrophils # (Auto) 7.1 x10^3/uL (1.8-7.7) Lymphocytes # (Auto) 1.6 x10^3/uL (1.0-4.8) Monocytes # (Auto) 0.7 x10^3/uL (0.0-1.1) Eosinophils # (Auto) 0.0 x10^3/uL (0.0-0.7) Basophils # (Auto) 0.1 x10^3/uL (0.0-0.2) Laboratory Tests Test 04/17/19 05:30 White Blood Count 9.5 x10^3/uL (4.0-11.0) Red Blood Count 3.55 x10^6/uL (3.50-5.40) Hemoglobin 10.4 g/dL (12.0-15.5) Hematocrit 31.1 % (36.0-47.0) Mean Corpuscular Volume 88 fL (79-100) Mean Corpuscular Hemoglobin 29 pg (25-35) Mean Corpuscular Hemoglobin Concent 33 g/dL (31-37) Red Cell Distribution Width 16.8 % (11.5-14.5) Platelet Count 175 x10^3/uL (140-400) Neutrophils (%) (Auto) 75 % (31-73) Lymphocytes (%) (Auto) 17 % (24-48) Monocytes (%) (Auto) 8 % (0-9) Eosinophils (%) (Auto) 1 % (0-3) Basophils (%) (Auto) 1 % (0-3) Neutrophils # (Auto) 7.1 x10^3/uL (1.8-7.7) Lymphocytes # (Auto) 1.6 x10^3/uL (1.0-4.8) Monocytes # (Auto) 0.7 x10^3/uL (0.0-1.1) Eosinophils # (Auto) 0.0 x10^3/uL (0.0-0.7) Basophils # (Auto) 0.1 x10^3/uL (0.0-0.2) Medications Current Medications Sodium Chloride (Normal Saline Flush) 3 ml QSHIFT PRN IV AFTER MEDS AND BLOOD DRAWS; Start 04/14/19 at 18:30 Ringer's Solution 1,000 ml @ 125 mls/hr Q8H IV Last administered on 04/17/19at 02:53; Start 04/14/19 at 18:17 Fentanyl Citrate (Fentanyl 2ml Vial) 50 mcg PRN Q30MIN PRN IV Mild to moderate pain; Start 04/14/19 at 18:30 Fentanyl Citrate (Fentanyl 2ml Vial) 100 mcg PRN Q30MIN PRN IV Severe pain; Start 04/14/19 at 18:30 Acetaminophen (Tylenol) 650 mg PRN Q6HRS PRN PO MILD PAIN / TEMP; Start 04/14/19 at 18:30 Ondansetron HCl (Zofran) 4 mg PRN Q4HRS PRN IV NAUSEA/VOMITING; Start 04/14/19 at 18:30 Al Hydroxide/Mg Hydroxide (Mylanta Plus Xs) 30 ml PRN Q4HRS PRN PO HEARTBURN / GAS; Start 04/14/19 at 18:30 Citric Acid/ Sodium Citrate (Bicitra) 30 ml 1X PRN PRN PO DYSPEPSIA; Start 04/14/19 at 18:30; Stop 04/15/19 at 18:29; Status DC Zolpidem Tartrate (Ambien) 5 mg PRN QHS PRN PO INSOMNIA Last administered on 04/15/19at 00:13; Start 04/14/19 at 18:30; Stop 04/15/19 at 13:14; Status DC Terbutaline Sulfate (Brethine) 0.25 mg 1X PRN PRN SQ SEE COMMENTS; Start 04/14/19 at 18:30; Stop 04/15/19 at 18:29; Status DC Lidocaine HCl (Xylocaine 1% Pf 30ml Vial) 30 ml 1X PRN PRN INJ SEE COMMENTS; Start 04/14/19 at 18:30; Stop 04/16/19 at 18:29; Status DC Oxytocin/Sodium Chloride 500 ml @ 0 mls/hr CONT PRN IV SEE I/O RECORD Last administered on 04/16/19at 08:38; Start 04/14/19 at 18:30 Oxytocin/Sodium Chloride 500 ml @ 0 mls/hr CONT PRN PRN IV Post delivery bleeding; Start 04/14/19 at 18:30 Ibuprofen (Motrin) 800 mg PRN Q6HRS PRN PO INFLAMMATION; Start 04/14/19 at 18:30 Docusate Sodium (Enemeez) 283 mg PRN DAILY PRN [place] CONSTIPATION; Start 04/14/19 at 18:30 Dinoprostone (Cervidil) 10 mg 1X ONCE VG Last administered on 04/14/19at 19:26; Start 04/14/19 at 18:30; Stop 04/14/19 at 18:31; Status DC Dinoprostone (Cervidil) 10 mg 1X ONCE VG Last administered on 04/15/19at 17:46; Start 04/15/19 at 18:00; Stop 04/15/19 at 18:01; Status DC Diphenhydramine HCl (Benadryl) 25 mg PRN QHS PRN PO INSOMNIA Last administered on 04/15/19at 21:14; Start 04/15/19 at 21:15 Famotidine (Pepcid Vial) 20 mg STK-MED ONCE .ROUTE ; Start 04/16/19 at 10:52; Stop 04/16/19 at 10:53; Status DC Ondansetron HCl (Zofran) 4 mg STK-MED ONCE .ROUTE ; Start 04/16/19 at 10:52; Stop 04/16/19 at 10:53; Status DC Oxytocin (Pitocin) 10 unit STK-MED ONCE .ROUTE ; Start 04/16/19 at 10:52; Stop 04/16/19 at 10:53; Status DC Morphine Sulfate (Morphine Preservative Free) 10 mg STK-MED ONCE .ROUTE ; Start 04/16/19 at 10:53; Stop 04/16/19 at 10:53; Status DC Fentanyl Citrate (Fentanyl 2ml Vial) 100 mcg STK-MED ONCE .ROUTE ; Start 04/16/19 at 10:53; Stop 04/16/19 at 10:53; Status DC Ketorolac Tromethamine (Toradol 30mg Vial) 30 mg PRN Q6HRS PRN IV PAIN Last administered on 04/17/19at 06:20; Start 04/16/19 at 11:00; Stop 04/21/19 at 10:59 Citric Acid/ Sodium Citrate (Bicitra) 30 ml 1X ONCE PO Last administered on 04/16/19at 13:25; Start 04/16/19 at 13:15; Stop 04/16/19 at 13:21; Status DC Cefazolin Sodium/ Dextrose 50 ml @ 100 mls/hr 1X ONCE IV ; Start 04/16/19 at 13:15; Stop 04/16/19 at 13:44; Status DC Cefazolin Sodium (Ancef) 1 gm STK-MED ONCE IVP ; Start 04/16/19 at 13:43; Stop 04/16/19 at 13:43; Status DC Ephedrine Sulfate (Akovaz) 50 mg STK-MED ONCE .ROUTE ; Start 04/16/19 at 14:01; Stop 04/16/19 at 14:01; Status DC Oxytocin (Pitocin) 10 unit STK-MED ONCE .ROUTE ; Start 04/16/19 at 14:01; Stop 04/16/19 at 14:01; Status DC Oxytocin (Pitocin) 10 unit STK-MED ONCE .ROUTE ; Start 04/16/19 at 14:25; Stop 04/16/19 at 14:26; Status DC Sodium Chloride (Normal Saline Flush) 3 ml QSHIFT PRN IV AFTER MEDS AND BLOOD DRAWS; Start 04/16/19 at 14:45 Oxytocin/Sodium Chloride 500 ml @ 125 mls/hr CONT PRN IV EXCESSIVE POST- BLEEDING; Start 04/16/19 at 14:45; Stop 04/16/19 at 22:44; Status DC Ibuprofen (Motrin) 800 mg PRN Q8HRS PRN PO INFLAMMATION; Start 04/16/19 at 14:45 Ondansetron HCl (Zofran) 4 mg PRN Q6HRS PRN IV NAUSEA/VOMITING; Start 04/16/19 at 14:45 Docusate Sodium (Colace) 100 mg PRN BID PRN PO CONSTIPATION Last administered on 04/17/19at 07:58; Start 04/16/19 at 14:45 Al Hydroxide/Mg Hydroxide (Mylanta Plus Xs) 30 ml PRN Q4HRS PRN PO HEARTBURN / GAS; Start 04/16/19 at 14:45 Simethicone (Gas-X) 80 mg PRN AFTMEALHC PRN PO GAS / BLOATING; Start 04/16/19 at 14:45 Diphenhydramine HCl (Benadryl Oral Elixir) 12.5 mg PRN Q6HRS PRN PO ITCHING; Start 04/16/19 at 14:45 Ferrous Sulfate (Feosol) 325 mg BIDWMEALS PO Last administered on 04/17/19at 07:58; Start 04/16/19 at 17:00 Zolpidem Tartrate (Ambien) 5 mg PRN QHS PRN PO INSOMNIA, MAY REPEAT X1; Start 04/16/19 at 14:45 Oxycodone/ Acetaminophen (Percocet 5/325) 2 tab PRN Q4HRS PRN PO MODERATE PAIN, SEVERE PAIN Last administered on 04/17/19at 07:59; Start 04/16/19 at 14:45 Ketorolac Tromethamine (Toradol 30mg Vial) 30 mg PRN Q6HRS PRN IV PAIN Last administered on 04/16/19at 16:51; Start 04/16/19 at 14:45; Stop 04/21/19 at 14:44 Active Scripts Active Ventolin Hfa Inhaler (Albuterol Sulfate) 18 Gm Hfa.aer.ad 2 Puff INH QID Prednisone 50 Mg Tablet 1 Tab PO DAILY Cephalexin 500 Mg Capsule 1 Cap PO BID Zofran (Ondansetron Hcl) 4 Mg Tablet 1 Tab PO Q6HRS Macrobid 100 Mg Capsule (Nitrofurantoin Monohyd/M-Cryst) 100 Mg Capsule 1 Cap PO BID Flagyl (Metronidazole) 500 Mg Tablet 1 Tab PO BID Exam Abd; soft, mild tenderness, fundus firm Incision site: clean, dry and intact Assessment POD#1 s/p c/s Plan of Care: Continue current Tx, Mgmt BRANDON HOFFMAN Jr, MD Apr 17, 2019 11:15
[2019-04-17 17:04] VITALS: BP 121/83
[2019-04-17 18:15] VITALS: BP 134/91
[2019-04-17 20:36] VITALS: BP 122/70
[2019-04-18 05:42] VITALS: BP 147/83
[2019-04-18 08:05] VITALS: BP 134/86
--- NOTE | 2019-04-18 08:05 | PDOC ---
OB Progress Note Date of Service 04/18/19 Time of Evaluation 0800 Notes Pt. feeling well. Pain controlled. Lab Laboratory Tests Test 04/17/19 05:30 White Blood Count 9.5 x10^3/uL (4.0-11.0) Red Blood Count 3.55 x10^6/uL (3.50-5.40) Hemoglobin 10.4 g/dL (12.0-15.5) Hematocrit 31.1 % (36.0-47.0) Mean Corpuscular Volume 88 fL (79-100) Mean Corpuscular Hemoglobin 29 pg (25-35) Mean Corpuscular Hemoglobin Concent 33 g/dL (31-37) Red Cell Distribution Width 16.8 % (11.5-14.5) Platelet Count 175 x10^3/uL (140-400) Neutrophils (%) (Auto) 75 % (31-73) Lymphocytes (%) (Auto) 17 % (24-48) Monocytes (%) (Auto) 8 % (0-9) Eosinophils (%) (Auto) 1 % (0-3) Basophils (%) (Auto) 1 % (0-3) Neutrophils # (Auto) 7.1 x10^3/uL (1.8-7.7) Lymphocytes # (Auto) 1.6 x10^3/uL (1.0-4.8) Monocytes # (Auto) 0.7 x10^3/uL (0.0-1.1) Eosinophils # (Auto) 0.0 x10^3/uL (0.0-0.7) Basophils # (Auto) 0.1 x10^3/uL (0.0-0.2) Medications Current Medications Sodium Chloride (Normal Saline Flush) 3 ml QSHIFT PRN IV AFTER MEDS AND BLOOD DRAWS; Start 04/14/19 at 18:30; Stop 04/17/19 at 13:36; Status DC Ringer's Solution 1,000 ml @ 125 mls/hr Q8H IV Last administered on 04/17/19at 02:53; Start 04/14/19 at 18:17 Fentanyl Citrate (Fentanyl 2ml Vial) 50 mcg PRN Q30MIN PRN IV Mild to moderate pain; Start 04/14/19 at 18:30 Fentanyl Citrate (Fentanyl 2ml Vial) 100 mcg PRN Q30MIN PRN IV Severe pain; Start 04/14/19 at 18:30 Acetaminophen (Tylenol) 650 mg PRN Q6HRS PRN PO MILD PAIN / TEMP; Start 04/14/19 at 18:30 Ondansetron HCl (Zofran) 4 mg PRN Q4HRS PRN IV NAUSEA/VOMITING; Start 04/14/19 at 18:30; Stop 04/17/19 at 13:36; Status DC Al Hydroxide/Mg Hydroxide (Mylanta Plus Xs) 30 ml PRN Q4HRS PRN PO HEARTBURN / GAS; Start 04/14/19 at 18:30; Stop 04/17/19 at 13:36; Status DC Citric Acid/ Sodium Citrate (Bicitra) 30 ml 1X PRN PRN PO DYSPEPSIA; Start 04/14/19 at 18:30; Stop 04/15/19 at 18:29; Status DC Zolpidem Tartrate (Ambien) 5 mg PRN QHS PRN PO INSOMNIA Last administered on 04/15/19at 00:13; Start 04/14/19 at 18:30; Stop 04/15/19 at 13:14; Status DC Terbutaline Sulfate (Brethine) 0.25 mg 1X PRN PRN SQ SEE COMMENTS; Start 0 at 18:30; Stop 04/15/19 at 18:29; Status DC Lidocaine HCl (Xylocaine 1% Pf 30ml Vial) 30 ml 1X PRN PRN INJ SEE COMMENTS; Start 04/14/19 at 18:30; Stop 04/16/19 at 18:29; Status DC Oxytocin/Sodium Chloride 500 ml @ 0 mls/hr CONT PRN IV SEE I/O RECORD Last administered on 04/16/19at 08:38; Start 04/14/19 at 18:30 Oxytocin/Sodium Chloride 500 ml @ 0 mls/hr CONT PRN PRN IV Post delivery bleeding; Start 04/14/19 at 18:30 Ibuprofen (Motrin) 800 mg PRN Q6HRS PRN PO INFLAMMATION Last administered on 04/17/19at 13:14; Start 04/14/19 at 18:30; Stop 04/17/19 at 13:37; Status DC Docusate Sodium (Enemeez) 283 mg PRN DAILY PRN [place] CONSTIPATION; Start 04/14/19 at 18:30 Dinoprostone (Cervidil) 10 mg 1X ONCE VG Last administered on 04/14/19at 19:26; Start 04/14/19 at 18:30; Stop 04/14/19 at 18:31; Status DC Dinoprostone (Cervidil) 10 mg 1X ONCE VG Last administered on 04/15/19at 17:46; Start 04/15/19 at 18:00; Stop 04/15/19 at 18:01; Status DC Diphenhydramine HCl (Benadryl) 25 mg PRN QHS PRN PO INSOMNIA Last administered on 04/15/19at 21:14; Start 04/15/19 at 21:15 Famotidine (Pepcid Vial) 20 mg STK-MED ONCE .ROUTE ; Start 04/16/19 at 10:52; Stop 04/16/19 at 10:53; Status DC Ondansetron HCl (Zofran) 4 mg STK-MED ONCE .ROUTE ; Start 04/16/19 at 10:52; Stop 04/16/19 at 10:53; Status DC Oxytocin (Pitocin) 10 unit STK-MED ONCE .ROUTE ; Start 04/16/19 at 10:52; Stop 04/16/19 at 10:53; Status DC Morphine Sulfate (Morphine Preservative Free) 10 mg STK-MED ONCE .ROUTE ; Start 04/16/19 at 10:53; Stop 04/16/19 at 10:53; Status DC Fentanyl Citrate (Fentanyl 2ml Vial) 100 mcg STK-MED ONCE .ROUTE ; Start 04/16/19 at 10:53; Stop 04/16/19 at 10:53; Status DC Ketorolac Tromethamine (Toradol 30mg Vial) 30 mg PRN Q6HRS PRN IV PAIN Last administered on 04/17/19at 06:20; Start 04/16/19 at 11:00; Stop 04/17/19 at 13:37; Status DC Citric Acid/ Sodium Citrate (Bicitra) 30 ml 1X ONCE PO Last administered on 04/16/19at 13:25; Start 04/16/19 at 13:15; Stop 04/16/19 at 13:21; Status DC Cefazolin Sodium/ Dextrose 50 ml @ 100 mls/hr 1X ONCE IV ; Start 04/16/19 at 13:15; Stop 04/16/19 at 13:44; Status DC Cefazolin Sodium (Ancef) 1 gm STK-MED ONCE IVP ; Start 04/16/19 at 13:43; Stop 04/16/19 at 13:43; Status DC Ephedrine Sulfate (Akovaz) 50 mg STK-MED ONCE .ROUTE ; Start 04/16/19 at 14:01; Stop 04/16/19 at 14:01; Status DC Oxytocin (Pitocin) 10 unit STK-MED ONCE .ROUTE ; Start 04/16/19 at 14:01; Stop 04/16/19 at 14:01; Status DC Oxytocin (Pitocin) 10 unit STK-MED ONCE .ROUTE ; Start 04/16/19 at 14:25; Stop 04/16/19 at 14:26; Status DC Sodium Chloride (Normal Saline Flush) 3 ml QSHIFT PRN IV AFTER MEDS AND BLOOD DRAWS; Start 04/16/19 at 14:45 Oxytocin/Sodium Chloride 500 ml @ 125 mls/hr CONT PRN IV EXCESSIVE POST- BLEEDING; Start 04/16/19 at 14:45; Stop 04/16/19 at 22:44; Status DC Ibuprofen (Motrin) 800 mg PRN Q8HRS PRN PO INFLAMMATION; Start 04/16/19 at 14:45 Ondansetron HCl (Zofran) 4 mg PRN Q6HRS PRN IV NAUSEA/VOMITING; Start 04/16/19 at 14:45 Docusate Sodium (Colace) 100 mg PRN BID PRN PO CONSTIPATION Last administered on 04/17/19at 07:58; Start 04/16/19 at 14:45 Al Hydroxide/Mg Hydroxide (Mylanta Plus Xs) 30 ml PRN Q4HRS PRN PO HEARTBURN / GAS; Start 04/16/19 at 14:45 Simethicone (Gas-X) 80 mg PRN AFTMEALHC PRN PO GAS / BLOATING; Start 04/16/19 at 14:45 Diphenhydramine HCl (Benadryl Oral Elixir) 12.5 mg PRN Q6HRS PRN PO ITCHING; Start 04/16/19 at 14:45 Ferrous Sulfate (Feosol) 325 mg BIDWMEALS PO Last administered on 04/17/19at 17:10; Start 04/16/19 at 17:00 Zolpidem Tartrate (Ambien) 5 mg PRN QHS PRN PO INSOMNIA, MAY REPEAT X1; Start 04/16/19 at 14:45 Oxycodone/ Acetaminophen (Percocet 5/325) 2 tab PRN Q4HRS PRN PO MODERATE PAIN, SEVERE PAIN Last administered on 04/17/19at 23:11; Start 04/16/19 at 14:45 Ketorolac Tromethamine (Toradol 30mg Vial) 30 mg PRN Q6HRS PRN IV PAIN Last administered on 04/16/19at 16:51; Start 04/16/19 at 14:45; Stop 04/21/19 at 14:44 Active Scripts Active Ventolin Hfa Inhaler (Albuterol Sulfate) 18 Gm Hfa.aer.ad 2 Puff INH QID Prednisone 50 Mg Tablet 1 Tab PO DAILY Cephalexin 500 Mg Capsule 1 Cap PO BID Zofran (Ondansetron Hcl) 4 Mg Tablet 1 Tab PO Q6HRS Macrobid 100 Mg Capsule (Nitrofurantoin Monohyd/M-Cryst) 100 Mg Capsule 1 Cap PO BID Flagyl (Metronidazole) 500 Mg Tablet 1 Tab PO BID Exam Abd: soft, mild tenderness, fundus firm Incision site: clean, dry and intact Assessment POD#2 s/p c/s Plan of Care: Continue current Tx, BRANDON Tyler Jr, MD Apr 18, 2019 08:05
[2019-04-18] MEDS: FERROUS SULFATE 325 MG TABLET. PO SCH ×2 (08:10→17:02)
[2019-04-18] MEDS: oxyCODONE/APAP 5/325 1 TAB TABLET PO PRN (08:16)
[2019-04-18] MEDS: IBUPROFEN 400 MG TABLET. PO PRN ×2 (08:17→16:18)
--- NOTE | 2019-04-18 10:11 | NUR ---
SS following up with referral regarding "[age] year old learning disables mother to a thirty[age]one year old who she is very dependent on. Have concerns about mother's ability to care for baby when home alone." SS reviewed pt chart. No history of substance use indicated. SS met with mother and father in room to assess circumstances surrounding referral. As observed, mother was holding infant making attempt to christopher and father was at bedside. Infant RN present as well. Father reported that mother had care through Dr. Cali. SS contacted Dr. Cali's office post visit and received notification that mother had good attendance for appointments and has [employer]. Father reported that they have well baby appointment scheduled for 04/21/[address] England and [facility] appointment scheduled on 04/23/2019. Father reported that he leaves for work at approximately 3:30 and paternal grandmother comes to the home between 4:00 and 4:30 to assist mother. Mother is only alone in home for one hour during the work week. 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 No other behavioral health diagnosis reported. Father reported that they have carseat, bassinet, and all clothing and supplies needed for infant. No other concerns noted by infant RN or mother RN. This referral did not meet criteria for DCF referral at this time. SS notified and mother RN to contact SS if any other concerns arise.
[2019-04-18] MEDS ORDERED: ONDANSETRON ODT 4 MG TAB.RAPDIS. PO PRN (13:00)
[2019-04-18 13:44] VITALS: BP 135/78
[2019-04-18 20:12] VITALS: BP 119/80
[2019-04-19 00:27] VITALS: BP 120/72
[2019-04-19 06:00] VITALS: BP 129/79
[2019-04-19 08:00] VITALS: BP 133/80
[2019-04-19] MEDS: DOCUSATE SODIUM 100 MG CAPSULE. PO PRN (08:26)
[2019-04-19] MEDS: IBUPROFEN 400 MG TABLET. PO PRN (08:27)
[2019-04-19] MEDS ORDERED: OXYC1TAB15 PO (08:44)
[2019-04-19] MEDS ORDERED: IBUP-1060 PO (08:44)
[2019-04-19] MEDS ORDERED: DOCU-109 PO (08:44)
--- NOTE | 2019-04-19 10:01 | PDOC ---
PROGRESS NOTES Subjective Subjective Pt with good pain control. Marito PO. Voiding. Minimal lochia. Denies MENDOZA, changes in vision or abd pain Objective Objective Vital Signs Date Time Temp Pulse Resp B/P (MAP) Pulse Ox O2 Delivery O2 Flow Rate FiO2 04/19/19 06:00 98.9 87 18 129/79 (96) Room Air 98.9 04/19/19 00:27 98 Physical Exam Physical Exam Inc: C/D/I FFNT below umb No C/C/E Assessment Assessment A/P 18y POD #3 s/p primary LTCS for failure to dilate 1.) PO doing well 2.) GHTN a couple of mild range BP, neg protein on admission UA, no s/s of preeclampsia 3.) Hgb 11.8 -> 10.4 4.) D/c home Comment Review of Relevant I have reviewed the following items antonio (where applicable) has been applied. Labs Microbiology 04/14/19 Urine Culture - Final, Complete 04/14/19 Urine Culture Result 1 (YASMANY) - Final, Complete Medications Current Medications Sodium Chloride (Normal Saline Flush) 3 ml QSHIFT PRN IV AFTER MEDS AND BLOOD DRAWS; Start 04/14/19 at 18:30; Stop 04/17/19 at 13:36; Status DC Ringer's Solution 1,000 ml @ 125 mls/hr Q8H IV Last administered on 04/17/19at 02:53; Start 04/14/19 at 18:17; Stop 04/18/19 at 20:35; Status DC Fentanyl Citrate (Fentanyl 2ml Vial) 50 mcg PRN Q30MIN PRN IV Mild to moderate pain; Start 04/14/19 at 18:30 Fentanyl Citrate (Fentanyl 2ml Vial) 100 mcg PRN Q30MIN PRN IV Severe pain; Start 04/14/19 at 18:30 Acetaminophen (Tylenol) 650 mg PRN Q6HRS PRN PO MILD PAIN / TEMP; Start 04/14/19 at 18:30 Ondansetron HCl (Zofran) 4 mg PRN Q4HRS PRN IV NAUSEA/VOMITING; Start 04/14/19 at 18:30; Stop 04/17/19 at 13:36; Status DC Al Hydroxide/Mg Hydroxide (Mylanta Plus Xs) 30 ml PRN Q4HRS PRN PO HEARTBURN / GAS; Start 04/14/19 at 18:30; Stop 04/17/19 at 13:36; Status DC Citric Acid/ Sodium Citrate (Bicitra) 30 ml 1X PRN PRN PO DYSPEPSIA; Start 04/14/19 at 18:30; Stop 04/15/19 at 18:29; Status DC Zolpidem Tartrate (Ambien) 5 mg PRN QHS PRN PO INSOMNIA Last administered on 04/15/19at 00:13; Start 04/14/19 at 18:30; Stop 04/15/19 at 13:14; Status DC Terbutaline Sulfate (Brethine) 0.25 mg 1X PRN PRN SQ SEE COMMENTS; Start 04/14/19 at 18:30; Stop 04/15/19 at 18:29; Status DC Lidocaine HCl (Xylocaine 1% Pf 30ml Vial) 30 ml 1X PRN PRN INJ SEE COMMENTS; Start 04/14/19 at 18:30; Stop 04/16/19 at 18:29; Status DC Oxytocin/Sodium Chloride 500 ml @ 0 mls/hr CONT PRN IV SEE I/O RECORD Last administered on 04/16/19at 08:38; Start 04/14/19 at 18:30 Oxytocin/Sodium Chloride 500 ml @ 0 mls/hr CONT PRN PRN IV Post delivery bleeding; Start 04/14/19 at 18:30 Ibuprofen (Motrin) 800 mg PRN Q6HRS PRN PO INFLAMMATION Last administered on 04/17/19at 13:14; Start 04/14/19 at 18:30; Stop 04/17/19 at 13:37; Status DC Docusate Sodium (Enemeez) 283 mg PRN DAILY PRN NC CONSTIPATION; Start 04/14/19 at 18:30 Dinoprostone (Cervidil) 10 mg 1X ONCE VG Last administered on 04/14/19at 19:26; Start 04/14/19 at 18:30; Stop 04/14/19 at 18:31; Status DC Dinoprostone (Cervidil) 10 mg 1X ONCE VG Last administered on 04/15/19at 17:46; Start 04/15/19 at 18:00; Stop 04/15/19 at 18:01; Status DC Diphenhydramine HCl (Benadryl) 25 mg PRN QHS PRN PO INSOMNIA Last administered on 04/15/19at 21:14; Start 04/15/19 at 21:15 Famotidine (Pepcid Vial) 20 mg STK-MED ONCE .ROUTE ; Start 04/16/19 at 10:52; Stop 04/16/19 at 10:53; Status DC Ondansetron HCl (Zofran) 4 mg STK-MED ONCE .ROUTE ; Start 04/16/19 at 10:52; Stop 04/16/19 at 10:53; Status DC Oxytocin (Pitocin) 10 unit STK-MED ONCE .ROUTE ; Start 04/16/19 at 10:52; Stop 04/16/19 at 10:53; Status DC Morphine Sulfate (Morphine Preservative Free) 10 mg STK-MED ONCE .ROUTE ; Start 04/16/19 at 10:53; Stop 04/16/19 at 10:53; Status DC Fentanyl Citrate (Fentanyl 2ml Vial) 100 mcg STK-MED ONCE .ROUTE ; Start 04/16/19 at 10:53; Stop 04/16/19 at 10:53; Status DC Ketorolac Tromethamine (Toradol 30mg Vial) 30 mg PRN Q6HRS PRN IV PAIN Last administered on 04/17/19at 06:20; Start 04/16/19 at 11:00; Stop 04/17/19 at 13:37; Status DC Citric Acid/ Sodium Citrate (Bicitra) 30 ml 1X ONCE PO Last administered on 04/16/19at 13:25; Start 04/16/19 at 13:15; Stop 04/16/19 at 13:21; Status DC Cefazolin Sodium/ Dextrose 50 ml @ 100 mls/hr 1X ONCE IV ; Start 04/16/19 at 13:15; Stop 04/16/19 at 13:44; Status DC Cefazolin Sodium (Ancef) 1 gm STK-MED ONCE IVP ; Start 04/16/19 at 13:43; Stop 04/16/19 at 13:43; Status DC Ephedrine Sulfate (Akovaz) 50 mg STK-MED ONCE .ROUTE ; Start 04/16/19 at 14:01; Stop 04/16/19 at 14:01; Status DC Oxytocin (Pitocin) 10 unit STK-MED ONCE .ROUTE ; Start 04/16/19 at 14:01; Stop 04/16/19 at 14:01; Status DC Oxytocin (Pitocin) 10 unit STK-MED ONCE .ROUTE ; Start 04/16/19 at 14:25; Stop 04/16/19 at 14:26; Status DC Sodium Chloride (Normal Saline Flush) 3 ml QSHIFT PRN IV AFTER MEDS AND BLOOD DRAWS; Start 04/16/19 at 14:45 Oxytocin/Sodium Chloride 500 ml @ 125 mls/hr CONT PRN IV EXCESSIVE POST- BLEEDING; Start 04/16/19 at 14:45; Stop 04/16/19 at 22:44; Status DC Ibuprofen (Motrin) 800 mg PRN Q8HRS PRN PO INFLAMMATION Last administered on 04/19/19at 08:27; Start 04/16/19 at 14:45 Ondansetron HCl (Zofran) 4 mg PRN Q6HRS PRN IV NAUSEA/VOMITING; Start 04/16/19 at 14:45 Docusate Sodium (Colace) 100 mg PRN BID PRN PO CONSTIPATION Last administered on 04/19/19at 08:26; Start 04/16/19 at 14:45 Al Hydroxide/Mg Hydroxide (Mylanta Plus Xs) 30 ml PRN Q4HRS PRN PO HEARTBURN / GAS; Start 04/16/19 at 14:45 Simethicone (Gas-X) 80 mg PRN AFTMEALHC PRN PO GAS / BLOATING; Start 04/16/19 at 14:45 Diphenhydramine HCl (Benadryl Oral Elixir) 12.5 mg PRN Q6HRS PRN PO ITCHING; Start 04/16/19 at 14:45 Ferrous Sulfate (Feosol) 325 mg BIDWMEALS PO Last administered on 04/18/19at 17:02; Start 04/16/19 at 17:00 Zolpidem Tartrate (Ambien) 5 mg PRN QHS PRN PO INSOMNIA, MAY REPEAT X1; Start 04/16/19 at 14:45 Oxycodone/ Acetaminophen (Percocet 5/325) 2 tab PRN Q4HRS PRN PO MODERATE PAIN, SEVERE PAIN Last administered on 04/18/19at 08:16; Start 04/16/19 at 14:45 Ketorolac Tromethamine (Toradol 30mg Vial) 30 mg PRN Q6HRS PRN IV PAIN Last administered on 04/16/19at 16:51; Start 04/16/19 at 14:45; Stop 04/21/19 at 14:44 Ondansetron HCl (Zofran Odt) 4 mg PRN Q6HRS PRN PO NAUSEA/VOMITING Last administered on 04/18/19at 13:03; Start 04/18/19 at 13:00 Active Scripts Active Percocet 5-325 Mg Tablet (Oxycodone/Acetaminophen) 1 Each Tablet 1 Tab PO PRN Q6HRS PRN Ibuprofen 800 Mg Tablet 800 Mg PO PRN Q6HRS PRN Colace (Docusate Sodium) 100 Mg Capsule 100 Mg PO PRN BID PRN Ventolin Hfa Inhaler (Albuterol Sulfate) 18 Gm Hfa.aer.ad 2 Puff INH QID Prednisone 50 Mg Tablet 1 Tab PO DAILY Cephalexin 500 Mg Capsule 1 Cap PO BID Zofran (Ondansetron Hcl) 4 Mg Tablet 1 Tab PO Q6HRS Macrobid 100 Mg Capsule (Nitrofurantoin Monohyd/M-Cryst) 100 Mg Capsule 1 Cap PO BID Flagyl (Metronidazole) 500 Mg Tablet 1 Tab PO BID Vitals/I & O Vital Sign - Last 24 Hours 04/18/19 04/18/19 04/18/19 04/19/19 13:44 20:12 20:13 00:27 Temp 97.7 98.3 98.1 97.7 98.3 98.1 Pulse 78 77 80 Resp 16 16 18 B/P (MAP) 135/78 (97) 119/80 (93) 120/72 (88) Pulse Ox 100 100 98 O2 Delivery Room Air Room Air Room Air 04/19/19 06:00 Temp 98.9 98.9 Pulse 87 Resp 18 B/P (MAP) 129/79 (96) O2 Delivery Room Air PENELOPE VELASQUEZ MD Apr 19, 2019 10:01
--- NOTE | 2019-04-19 11:17 | DS ---
DATE OF DISCHARGE: ADMISSION DIAGNOSES: 1. Intrauterine at 40 weeks. 2. Induction of labor. DISCHARGE DIAGNOSES: 1. Intrauterine at 40 weeks. 2. Induction of labor. 3. Failure to dilate. 2. Gestational hypertension. PROCEDURES: Primary low transverse . BRIEF HOSPITAL COURSE: The patient is a 18-year-old 2, para 0 who presented to Labor and Delivery at 40 weeks for induction of labor. The patient had a Cervidil placed and the subsequent morning and was started on Pitocin. The patient remained without cervical change, so decision was made to move towards section. See operative note for full detail. The patient had a couple of mild range of blood pressures after delivery, but had a negative protein on UA and remained without any symptoms of preeclampsia throughout the hospital admission. By postop day #3, the patient was meeting all discharge criteria and was subsequently discharged. The patient also had a hemoglobin of 11.8 on admission and after delivery was found to be 10.4. DISCHARGE INSTRUCTIONS: The patient was told not to lift anything greater than 20 pounds, have pelvic rest for 6 weeks, not to drive on narcotics. CALL IF: The patient was call if she had fevers, chills, nausea, vomiting, abdominal pain or any additional questions or concerns. FOLLOWUP APPOINTMENT: The patient was to follow up in [address] Cali for an incision check. DISCHARGE MEDICATIONS: The patient was given a prescription for Percocet 5, 10 pills, Motrin 800 mg 30 pills and Colace 100 mg 30 pills. PENELOPE VELASQUEZ MD DR: NBA/ramila JOB#: [id number] / [id number] ROCÍO
[2019-04-19 11:50] VITALS: BP 131/86
== END 2019-04-19 11:50 | disposition home or self-care (01) | DRG 788 ==
LOC: 3 SO LND 18:11 → 3 NORTH 04-16 17:45
PROVIDERS: ADMIT Obstetrics & Gynecology; ATTEND Obstetrics & Gynecology
PROC: 10D00Z1 Extraction of Products of Conception, Low, Open Approach (ICD-10-PCS; principal; 2019-04-16)
DX: O13.4 Gestational [pregnancy-induced] hypertension without significant proteinuria, complicating childbirth (principal); O69.81X0 Labor and delivery complicated by cord around neck, without compression, not applicable or unspecified; Z3A.40 40 weeks gestation of pregnancy; Z37.0 Single live birth
CPT/HCPCS: 36415; 81001; 85025; 86592; 86850; 86900; 86901; 87086; J0690; J1885; J2274; J2405; J2590; J3010; J3490; J7120; Q0162; Q0163; G0378

== ENCOUNTER → 2019-07-29 | Outpatient (CLI) | payer MEDICAID ==
[~2019-07-29] MED LIST changes: +DOCU-109 PO; +IBUP-1060 PO; +OXYC1TAB15 PO
--- NOTE | 2019-07-29 15:27 | RAD ---
KNEE RIGHT 3V 07/29/2019 12:00 AM INDICATION: Right knee pain from the sixth grade. COMPARISON: None available. TECHNIQUE: 3 views of the right knee are provided. FINDINGS/ IMPRESSION: No knee joint effusion. There is no acute fracture or dislocation. Joint spaces are maintained. Bone mineralization is within normal limits. Regional soft tissues are within normal limits. There is no soft tissue gas or osseous erosion. No radiopaque foreign body. Electronically signed by: Rehana Felix MD (07/29/2019 3:25 PM) [id number]
== END | disposition home or self-care (01) ==
LOC: RAD 14:37
PROVIDERS: ATTEND Family Medicine
DX: M25.561 Pain in right knee (principal)
CPT/HCPCS: 73562